=== PATIENT | female | born 1955 ===

== ENCOUNTER 2021-11-30 04:38 | Day surgery (SDC) | payer OTHER ==
[2021-11-27 15:28] VITALS: BMI 27.8
[2021-11-30] MEDS ORDERED: LIDOCAINE HCL 2% JELLY 10 ML CARTRIDGE ONE (08:18)
[2021-11-30] MEDS ORDERED: LIDOCAINE HCL 2% JELLY 10 ML CARTRIDGE TP ONE (08:40)
[2021-11-30 08:52] VITALS: TEMP 98
[2021-11-30 10:22] VITALS: BP 113/55; PULSE 64
== END 2021-11-30 09:35 | disposition home or self-care (01) ==
LOC: JASU-ENDO 04:38
PROVIDERS: ATTEND Internal Medicine Gastroenterology
PROC: 06LY8CC Occlusion of Hemorrhoidal Plexus with Extraluminal Device, Via Natural or Artificial Opening Endoscopic (ICD-10-PCS; principal; 2021-11-30 08:45)
DX: K64.8 Other hemorrhoids (principal)